=== PATIENT | female | born 2000 | race Caucasian/White ===

== ENCOUNTER 2019-09-26 12:55 | Outpatient (REF) | payer BC, SELFPAY ==
[2019-09-30 14:43] LABS: Chlamydia Result Negative (Negative)
[2019-09-30 15:23] LABS: GC Result Negative (Negative)
== END 2019-09-26 13:15 ==
LOC: LBN 12:55
PROVIDERS: PCP Family Medicine; Visit Provider Family Medicine
DX: Z00.00 Encounter for general adult medical examination without abnormal findings (principal); Z11.3 Encounter for screening for infections with a predominantly sexual mode of transmission
CPT/HCPCS: 87491; 87591

== ENCOUNTER 2021-02-16 09:36 | Outpatient (REF) | payer BC, SELFPAY ==
--- NOTE | 2021-02-16 08:45 | PAPFT_PTH ---
PATIENT: John Esquivel LOC: [facility] U#:[id number] AGE/SX: 20/F ROOM: RE02/16/[address]: Maria Guadalupe Valentino MD, DC : 2000 BED: DIS: 02/16/2021 SPEC #: [id number] RECD: 02/16/21 13:03 STATUS: MARYELLEN RERe #: [id number] RONNY: 02/16/21 08:[address]: Maria Guadalupe Valentino DEPT: [facility] Cytology RECD BY: Ghada Brand Tissues: 1 - CX/ENDOCX FOR PAP SMEARS Procedures: PAP THIN PREP/[facility] Screening Comments: [id number]
== END 2021-02-16 09:37 | disposition home or self-care (01) ==
LOC: LBN 09:36
PROVIDERS: PCP Family Medicine; Visit Provider Family Medicine
DX: Z12.4 Encounter for screening for malignant neoplasm of cervix (principal)
CPT/HCPCS: 88142